=== PATIENT | male | born 1985 | race Caucasian/White ===

== ENCOUNTER 2016-08-16 19:52 | Emergency (ER) | payer OTHER ==
[~2016-08-16] VITALS: Ht 170.2 cm; Wt 106.8 kg
[~2016-08-16 19:52] MED LIST: GABA-1218 PO; LORA-741 PO; NAPR1TAB9 PO; OMEGCAP2 PO; [UNRECOGNIZED DRUG - OTHER] PO
[2016-08-16 20:00] VITALS: TEMP 37; Ht 170.2 cm; Wt 106.8 kg
--- NOTE | 2016-08-16 20:39 | EMERGENCY ROOM VISIT NOTE ---
History Report prepared by Phillip: Lea Mosley Under the Supervision of: Dr. Patricio Diaz M.D. First contact with patient: 20:19 Chief Complaint: HEADACHE Stated Complaint: SYNCOPE History of Present Illness The patient is a 30 year old male who presents to the Emergency Room with complaints of worsening headache beginning yesterday. He is experiencing the pain behind his eyes and around his quaker areas. He notes that he has chronic migraines however this headache is in a different location than normal. The patient states that he is having neck pain and experiences trouble moving his head left and right. The patient does have chronic neck pain due to spinal misalignment at C6-C7 and notes that this feels similar to that pain. He is also experiencing weakness and numbness to his hands and feet. The patient did have a syncope episode today at his house. He is also experiencing decreased appetite, light sensitivity, vomiting and a subjective fever. The patient has taken Aleve. He denies nausea. Source of History: patient Onset: yesterday Position: other (global) Quality: other (headache) Timing: worsening Associated Symptoms: + fevers, + neck pain, + vomiting Review of Systems See HPI for pertinent positives & negatives. A total of 10 systems reviewed and were otherwise negative. Past Medical & Surgical Medical Problems: (1) Bipolar Disorder, Unspecified (2) Cervical strain (3) Chronic neck pain (4) Hypertension (5) Hypothyroidism (6) Migraines (7) Rhus dermatitis (8) Right arm surgery Surgical Problems: (1) History of hernia repair (2) History of tonsillectomy Family History Diabetes mellitus FHx: cancer FHx: gallbladder disease Hypertension Kidney disease Seizures Social History Smoking Status: Never Smoker Alcohol Use: occasionally Drug Use: none Marital Status: single Housing Status: lives alone Occupation Status: unemployed Current/Historical Medications Scheduled Doxycycline Monohydrate (Monodox), 100 MG PO BID Gabapentin (Neurontin), 300 MG PO TID [place]-3 Fatty Acids (Fish Oil), 1 CAP PO BID [Deep Blue Veg Caps], 1 CAP PO BID Scheduled PRN Adgdwcx-Syeernuibjeys-Lmzrupcq (Excedrin Migraine), 1 DOSE PO DIRECTED PRN for Migraine Homeopathic Products (Frankincense Uplifting), 1 DOSE TOP DIRECTED PRN for Migraine Liniments & Rubs (Deep Blue Relief), 1 APPLN TOP DIRECTED PRN for Pain Lorazepam (Ativan), 0.5 MG PO Q6H PRN for Anxiety Naproxen (Aleve), 220 MG PO UD PRN for Pain Peppermint Oil (Bulk) (Peppermint Oil), 1 DOSE TOP DIRECTED PRN for Heartburn Allergies Coded Allergies: Chlorine (Verified Allergy, Severe, SHORTNESS OF BREATH JUST FROM SMELLING IT, 08/16/16) Penicillins (Verified Allergy, Severe, RASH-severe itchiness, 08/16/16) Valproic Acid (Verified Adverse Reaction, Unknown, LIVER ENZYME ELEVATION , 08/16/16) Physical Exam Vital Signs Date Time Temp Pulse Resp B/P Pulse Ox O2 Delivery O2 Flow Rate FiO2 08/16/16 23:00 87 20 138/86 98 08/16/16 21:56 72 16 140/78 98 Room Air 08/16/16 21:09 98 Room Air 08/16/16 21:09 98 Room Air 08/16/16 21:06 82 127/89 99 Room Air 80 141/93 84 141/88 08/16/16 20:01 84 08/16/16 20:00 37.0 87 16 148/94 98 Room Air Physical Exam GENERAL: Patient is a healthy-appearing well-nourished HEAD: Normocephalic atraumatic. No evidence of meningitis or cephalitis. EYES: Ocular movements intact pupils equal and react to light OROPHARYNX mucous membranes are moist no exudates present no erythema or edema present NECK: Supple no nuchal rigidity CHEST: Good equal expansion LUNGS: Clear and equal to auscultation CARDIAC: Normal S1 and S2 ABDOMEN: Soft nontender no guarding BACK: No CVA tenderness EXTREMITIES: No pain upon palpation normal muscle strength in all groups no clubbing cyanosis or edema NEURO: Patient is following commands is answering questions appropriately. Alert and oriented x3 Cranial Nerves 2-12 grossly intact Medical Decision & Procedures ER Provider Diagnostic Interpretation: Radiology results as stated below per my review and radiologist interpretation: CT SCAN OF THE BRAIN WITHOUT IV CONTRAST CLINICAL HISTORY: Headache. Syncope. COMPARISON STUDY: MRI of the brain dated 01/15/2011. TECHNIQUE: Unenhanced axial CT scan of the brain is performed from the vertex to the skull base. Automated dose control exposure was utilized. CT DOSE: 537.48 mGy.cm FINDINGS: Brain parenchyma: The brain parenchyma is normal in appearance. There is no hemorrhage, mass effect, or evidence of acute territorial ischemia by CT criteria. Tolbert-white matter is preserved. No extra-axial fluid collection is seen. Ventricles, sulci, cisterns: Normal in configuration. Intracranial vasculature: The visualized intracranial vasculature at the skull base is normal in appearance. Calvarium: Unremarkable. Sinuses and mastoids: The visualized paranasal sinuses are clear. The mastoid air cells are well pneumatized. Orbits: The bony orbits are grossly intact. IMPRESSION: No acute intracranial abnormality. Electronically signed by: Devang Larios M.D. 08/16/2016 9:51 PM Dictated Date/Time: 08/16/2016 9:50 PM SINGLE VIEW CHEST CLINICAL HISTORY: Syncope. FINDINGS: An AP, portable, upright chest radiograph is compared to study dated 01/17/2016. The cardiomediastinal silhouette is unremarkable. The lungs and pleural spaces are clear. No pneumothorax is seen. The bony thorax is grossly intact. IMPRESSION: No active disease in the chest. Electronically signed by: Devang Larios M.D. 08/16/2016 9:34 PM Dictated Date/Time: 08/16/2016 9:34 PM Laboratory Results 08/16/16 19:38 Red Blood Count 6.09, Mean Corpuscular Volume 79.5, Mean Corpuscular Hemoglobin 30.0, Mean Corpuscular Hemoglobin Concent 37.8, Mean Platelet Volume 11.5, Neutrophils (%) (Auto) 88.2, Lymphocytes (%) (Auto) 7.3, Monocytes (%) (Auto) 3.9, Eosinophils (%) (Auto) 0.1, Basophils (%) (Auto) 0.2, Neutrophils # (Auto) 17.32, Lymphocytes # (Auto) 1.43, Monocytes # (Auto) 0.76, Eosinophils # (Auto) 0.01, Basophils # (Auto) 0.03 08/16/16 19:38 Test 08/16/16 19:38 08/16/16 21:05 08/16/16 21:17 White Blood Count 19.60 K/uL (4.8-10.8) Red Blood Count 6.09 M/uL (4.7-6.1) Hemoglobin 18.3 g/dL (14.0-18.0) Hematocrit 48.4 % (42-52) Mean Corpuscular Volume 79.5 fL (80-100) Mean Corpuscular Hemoglobin 30.0 pg (25-34) Mean Corpuscular Hemoglobin Concent 37.8 g/dl (32-36) Platelet Count 208 K/uL (130-400) Mean Platelet Volume 11.5 fL (7.4-10.4) Neutrophils (%) (Auto) 88.2 % Lymphocytes (%) (Auto) 7.3 % Monocytes (%) (Auto) 3.9 % Eosinophils (%) (Auto) 0.1 % Basophils (%) (Auto) 0.2 % Neutrophils # (Auto) 17.32 K/uL (1.4-6.5) Lymphocytes # (Auto) 1.43 K/uL (1.2-3.4) Monocytes # (Auto) 0.76 K/uL (0.11-0.59) Eosinophils # (Auto) 0.01 K/uL (0-0.5) Basophils # (Auto) 0.03 K/uL (0-0.2) RDW Standard Deviation 35.8 fL (36.4-46.3) RDW Coefficient of Variation 12.5 % (11.5-14.5) Immature Granulocyte % (Auto) 0.3 % Immature Granulocyte # (Auto) 0.05 K/uL (0.00-0.02) Anion Gap 11.0 mmol/L (3-11) Est Creatinine Clear Calc Drug Dose 116.5 ml/min Estimated GFR () 105.3 Estimated GFR (Non- 90.9 BUN/Creatinine Ratio 8.5 (10-20) Calcium Level 9.9 mg/dl (8.5-10.1) Total Bilirubin 1.6 mg/dl (0.2-1) Direct Bilirubin 0.2 mg/dl (0-0.2) Aspartate Amino Transf (AST/SGOT) 41 U/L (15-37) Alanine Aminotransferase (ALT/SGPT) 69 U/L (12-78) Alkaline Phosphatase 87 U/L (45-117) Total Protein 8.1 gm/dl (6.4-8.2) Albumin 4.8 gm/dl (3.4-5.0) Thyroid Stimulating Hormone (TSH) 1.130 uIu/ml (0.300-4.500) Urine Color DK YELLOW Urine Appearance CLOUDY (CLEAR) Urine pH >= 9.0 (4.5-7.5) Urine Specific [place] 1.027 (1.000-1.030) Urine Protein NEG (NEG) Urine Glucose (UA) NEG (NEG) Urine Ketones NEG (NEG) Urine Occult Blood NEG (NEG) Urine Nitrite NEG (NEG) Urine Bilirubin NEG (NEG) Urine Urobilinogen NEG (NEG) Urine Leukocyte Esterase TRACE (NEG) Urine WBC (Auto) 1-5 /hpf (0-5) Urine RBC (Auto) 0-4 /hpf (0-4) Urine Hyaline Casts (Auto) 5-10 /lpf (0-5) Urine Epithelial Cells (Auto) 20-30 /lpf (0-5) Urine Bacteria (Auto) NEG (NEG) Influenza Type A (RT-PCR) Neg for Influ A (NEG) Influenza Type A Antigen Neg for Influ A (NEG) Influenza Type B Antigen Neg for Influ B (NEG) Influenza Type B (RT-PCR) Neg for Influ B (NEG) Labs reviewed by ED physician. Medications Administered Medications (Trade) Dose Ordered Sig/Esther Route Start Time Stop Time Status Last Admin Dose Admin Sodium Chloride (Nss 1000ml) 1,000 ml @ 999 mls/hr Q1H1M STAT IV 08/16/16 20:55 08/16/16 21:55 DC 08/16/16 20:55 999 MLS/HR Ketorolac Tromethamine (Toradol Inj) 30 mg NOW STAT IV 08/16/16 20:55 08/16/16 20:57 DC 08/16/16 21:06 30 MG Prochlorperazine Edisylate (Compazine Inj) 10 mg NOW STAT IV 08/16/16 20:55 08/16/16 20:57 DC 08/16/16 21:04 10 MG Diphenhydramine HCl (Benadryl Inj) 50 mg NOW STAT IV 08/16/16 20:55 08/16/16 20:57 DC 08/16/16 21:04 50 MG Doxycycline Hyclate (Vibramycin Cap) 100 mg NOW STAT PO 08/16/16 22:45 08/16/16 22:46 DC 08/16/16 22:53 100 MG ECG Indication: other (headache) Rate (beats per minute): 80 Rhythm: normal sinus Findings: no acute ischemic change, no ectopy ED Course 2051: Past medical records reviewed. The patient was evaluated in room A11. A complete history and physical examination was performed. 2054: Benadryl Inj 50 mg IV, Compazine Inj 10 mg IV, Toradol Inj 30 mg IV, Sodium Chloride 1,000 ml @ 999 mls/hr IV. 2244: Vibramycin Cap 100 mg PO. 2247: Upon reexamination the patient is hemodynamically stable. I discussed results and treatment plan with the patient. He verbalizes agreement and understanding. The patient is ready for discharge. Medical Decision The patient is a 30 year old male who presents to the ED with complaints of headache. Differential diagnosis: Etiologies such as migraine headache, meningitis, sinusitis, CO exposure, ICH, SAH, infection, tumor, headache, sinus thrombosis, arterial dissection, as well as others were entertained. This is a 30-year-old male who presents emergency department complaining of headache along with neck pain. I will note that the patient also has a large elevation in his white blood count. Based on these findings I highly recommended that the patient have a lumbar puncture performed to rule out meningitis however the patient is insistent that this is a normal migraine headache for him along with normal neck pain. He is more concerned that he has been coughing up phlegm. There is no evidence of pneumonia on chest x-ray however I will place the patient doxycycline I stressed to the patient the need to return to the emergency department for a lumbar puncture if his headache and neck pain worsens. An IV was established, the patient given normal saline bolus , Compazine, Benadryl, Toradol repeat examination revealed much improvement patient's symptoms. The patient is pain-free at the time of discharge The patient has demonstrated no significant defect in the decision-making capacity to make choices. The encounter had a good level of communication with language the patient can easily understand. I feel trust was present and conveyed that our action/intentions were the best interest of the patient. The patient was given all relevant information and reiterated the explained risks and benefits. The patient explained the reasoning for refusing treatment clearly. The patient possesses and expresses a set of values and goals, the ability to communicate and understand, and an ability to reason and deliberate. Despite acting emphatically, attentively and with the utmost patient's the patient declined further treatment. I offered options, negotiated, and explored every reasonable choice. I must respect the patient's autonomy and that they feel that their choices are best for them despite the associated risks of leaving without completing the evaluation. The patient was informed about the findings as listed above. All questions were answered and he was pleased with the treatment. Return instructions were outlined and the patient was discharged in stable condition. Impression Primary Impression: Headache Scribe Attestation The scribe's documentation has been prepared under my direction and personally reviewed by me in its entirety. I confirm that the note above accurately reflects all work, treatment, procedures, and medical decision making performed by me. Departure Information Dispostion Home / Self-Care Prescriptions Doxycycline Monohydrate (Monodox) 100 Mg Cap 100 MG PO BID for 10 Days, #20 CAP Prov: Patricio Diaz MD 08/16/16 Referrals Lupe Mark M.D. (PCP) Forms HOME CARE DOCUMENTATION FORM, IMPORTANT VISIT INFORMATION, School Instructions, Work Instructions Patient Instructions Headache Pain, My [facility] Additional Instructions Return if head and neck pain become worse You have been examined and treated today on an emergency basis only. This is not a substitute for, or an effort to provide, complete comprehensive medical care. It is impossible to recognize and treat all injuries or illnesses in a single emergency department visit. It is therefore important that you follow up closely with [facility]. Call as soon as possible for an appointment. Thank you for your time and consideration. I look forward to speaking with you again soon. Please don't hesitate to call us if you have any questions. Problem Qualifiers Primary Impression: Headache Headache type: unspecified Headache chronicity pattern: unspecified pattern Intractability: not intractable Qualified Codes: R51 - Headache
[2016-08-16] MEDS ORDERED: PEPPOIL TOP (20:41)
[2016-08-16] MEDS ORDERED: LINIGEL19 TOP (20:41)
[2016-08-16] MEDS ORDERED: ASPI-390 PO (20:41)
[2016-08-16] MEDS ORDERED: [UNRECOGNIZED DRUG - CODE] TOP (20:41)
[2016-08-16] MEDS ORDERED: DiphenhydrAMINE HCL 50 MG/ML VIAL IV STA (20:55)
[2016-08-16] MEDS ORDERED: SODIUM CHLORIDE 0.9% 1000ML 1,000 ML IV STA (20:55)
[2016-08-16] MEDS ORDERED: KETOROLAC TROMETHAMINE 30 MG/ML VIAL IV STA (20:55)
[2016-08-16] MEDS ORDERED: PROCHLORPERAZINE 5 MG/ML 2 ML VIAL IV STA (20:55)
[2016-08-16 21:01] LABS: BASO % 0.2 %; BASO ABS # 0.03 K/uL (0-0.2); COMPLETE YES; EOS % 0.1 %; HEMATOCRIT 48.4 % (42-52); IG% 0.3 %; LYMPH % 7.3 %; LYMPH ABS # 1.43 K/uL (1.2-3.4); MEAN CELL VOLUME 79.5 fL (80-100); MEAN CORPUSCULAR HGB CONC 37.8 g/dl (32-36); MEAN PLATELET VOLUME 11.5 fL (7.4-10.4); MONO % 3.9 %; NEUT % 88.2 %; PLATELET COUNT 208 K/uL (130-400); RED BLOOD COUNT 6.09 M/uL (4.7-6.1)
[2016-08-16 21:09] VITALS: O2SAT 98
[2016-08-16 21:11] LABS: BUN/CREATININE RATIO 8.5 (10-20); CREATININE 1.1 mg/dl (0.60-1.40); POTASSIUM 3.7 mmol/L (3.5-5.1)
[2016-08-16 21:21] LABS: THYROID STIMULATING HORMONE 1.13 uIu/ml (0.300-4.500)
[2016-08-16 21:25] LABS: MANUAL MICROSCOPIC REQUIRED? NO; REVIEW REQ? NO; URINE APPEARANCE CLOUDY (CLEAR); URINE BILIRUBIN NEG (NEG); URINE COLOR DK YELLOW; URINE EPITHELIAL CELL AUTO 20-30 /lpf (0-5); URINE NITRITE NEG (NEG); URINE PH >= 9.0 (4.5-7.5); URINE SPECIFIC GRAVITY 1.027 (1.000-1.030); UROBILINOGEN NEG (NEG)
[2016-08-16 21:26] LABS: SULFASALICYLIC ACID NEG (NEG)
--- NOTE | 2016-08-16 21:36 | DIAGNOSTIC IMAGING REPORT ---
SINGLE VIEW CHEST CLINICAL HISTORY: Syncope. FINDINGS: An AP, portable, upright chest radiograph is compared to study dated 01/17/2016. The cardiomediastinal silhouette is unremarkable. The lungs and pleural spaces are clear. No pneumothorax is seen. The bony thorax is grossly intact. IMPRESSION: No active disease in the chest. Electronically signed by: Devang Larios M.D. 08/16/2016 9:34 PM Dictated Date/Time: 08/16/2016 9:34 PM
--- NOTE | 2016-08-16 21:53 | DIAGNOSTIC IMAGING REPORT ---
CT SCAN OF THE BRAIN WITHOUT IV CONTRAST CLINICAL HISTORY: Headache. Syncope. COMPARISON STUDY: MRI of the brain dated 01/15/2011. TECHNIQUE: Unenhanced axial CT scan of the brain is performed from the vertex to the skull base. Automated dose control exposure was utilized. CT DOSE: 537.48 mGy.cm FINDINGS: Brain parenchyma: The brain parenchyma is normal in appearance. There is no hemorrhage, mass effect, or evidence of acute territorial ischemia by CT criteria. Tolbert-white matter is preserved. No extra-axial fluid collection is seen. Ventricles, sulci, cisterns: Normal in configuration. Intracranial vasculature: The visualized intracranial vasculature at the skull base is normal in appearance. Calvarium: Unremarkable. Sinuses and mastoids: The visualized paranasal sinuses are clear. The mastoid air cells are well pneumatized. Orbits: The bony orbits are grossly intact. IMPRESSION: No acute intracranial abnormality. Electronically signed by: Devang Larios M.D. 08/16/2016 9:51 PM Dictated Date/Time: 08/16/2016 9:50 PM
[2016-08-16 22:02] LABS: CALCIUM 9.9 mg/dl (8.5-10.1)
[2016-08-16] MEDS ORDERED: DOXYCYCLINE HYCLATE 100 MG CAP PO STA (22:45)
[2016-08-16] MEDS ORDERED: DOXY100C76 PO (22:46)
[2016-08-16 23:00] VITALS: BP 138/86; PULSE 87; O2SAT 98
[2016-08-16 23:13] LABS: INFLUENZA A PCR Neg for Influ A (NEG); INFLUENZA B PCR Neg for Influ B (NEG)
== END 2016-08-16 23:01 | disposition home or self-care (01) ==
LOC: EDBD 19:52 → C.EDA 19:53
DX: R51 Headache (principal); M54.2 Cervicalgia; G89.29 Other chronic pain; R55 Syncope and collapse; F31.9 Bipolar disorder, unspecified; I10 Essential (primary) hypertension; E03.9 Hypothyroidism, unspecified; Z83.3 Family history of diabetes mellitus; Z80.9 Family history of malignant neoplasm, unspecified; Z82.49 Family history of ischemic heart disease and other diseases of the circulatory system; Z82.0 Family history of epilepsy and other diseases of the nervous system; Z79.899 Other long term (current) drug therapy

== ENCOUNTER 2016-08-22 17:19 | Emergency (ER) | payer OTHER ==
[~2016-08-22] VITALS: Ht 165.1 cm; Wt 105.6 kg
[~2016-08-22 17:19] MED LIST changes: +ASPI-390 PO; +DOXY100C76 PO; +LINIGEL19 TOP; +PEPPOIL TOP; +[UNRECOGNIZED DRUG - CODE] TOP
[2016-08-22 17:23] VITALS: TEMP 36.9; Ht 165.1 cm; Wt 105.6 kg
--- NOTE | 2016-08-22 18:10 | EMERGENCY ROOM VISIT NOTE ---
History Report prepared by Phillip: Chin Live Under the Supervision of: Dr. Omi Jerome D.O. First contact with patient: 17:57 Chief Complaint: REFERRED BY DOCTOR Stated Complaint: DR SANTIAGO REFERRED TO BE TESTED FOR MENINGITIS History of Present Illness The patient is a 30 year old male who presents to the Emergency Room after being referred by his PCP to role out meningitis. The patient was in the ED six days ago with a severe headache, fevers, chills, neck stiffness and back pain. The patient declined a lumbar puncture at that time. He was prescribed Doxycycline. At that time his white count was elevated. His symptoms have resolved other than neck and back pain. He does not currently complain of fevers or chills. He denies generalized body aches. The patient was referred to the ED by his PCP to role out meningitis because they are worried about his white count still being elevated. The patient has a history of migraines and C6- C7 damage. The patient denies drug use. He occasionally drinks alcohol. Source of History: patient Onset: six days ago Position: head Quality: other (meningitis r/o) Timing: resolved Associated Symptoms: + back pain, + neck pain, No chills (resolved), No fevers (resolved) Review of Systems See HPI for pertinent positives & negatives. A total of 10 systems reviewed and were otherwise negative. Past Medical & Surgical Medical Problems: (1) Bipolar Disorder, Unspecified (2) Cervical strain (3) Chronic neck pain (4) Hypertension (5) Hypothyroidism (6) Migraines (7) Rhus dermatitis (8) Right arm surgery Surgical Problems: (1) History of hernia repair (2) History of tonsillectomy Family History Diabetes mellitus FHx: cancer FHx: gallbladder disease Hypertension Kidney disease Seizures Social History Smoking Status: Never Smoker Alcohol Use: occasionally Drug Use: none Marital Status: single Housing Status: lives alone Occupation Status: unemployed Current/Historical Medications Scheduled Doxycycline Monohydrate (Monodox), 100 MG PO BID Gabapentin (Neurontin), 300 MG PO TID [place]-3 Fatty Acids (Fish Oil), 1 CAP PO BID [Deep Blue Veg Caps], 1 CAP PO BID Scheduled PRN Mmhggac-Bsymnckdbteiw-Aectdiru (Excedrin Migraine), 1 DOSE PO DIRECTED PRN for Migraine Homeopathic Products (Frankincense Uplifting), 1 DOSE TOP DIRECTED PRN for Migraine Liniments & Rubs (Deep Blue Relief), 1 APPLN TOP DIRECTED PRN for Pain Lorazepam (Ativan), 0.5 MG PO Q6H PRN for Anxiety Naproxen (Aleve), 220 MG PO UD PRN for Pain Peppermint Oil (Bulk) (Peppermint Oil), 1 DOSE TOP DIRECTED PRN for Heartburn Allergies Coded Allergies: Chlorine (Verified Allergy, Severe, SHORTNESS OF BREATH JUST FROM SMELLING IT, 08/23/16) Penicillins (Verified Allergy, Severe, RASH-severe itchiness, 08/23/16) Valproic Acid (Verified Adverse Reaction, Unknown, LIVER ENZYME ELEVATION , 08/23/16) Physical Exam Vital Signs Date Time Temp Pulse Resp B/P Pulse Ox O2 Delivery O2 Flow Rate FiO2 08/22/16 20:07 84 18 159/132 97 08/22/16 19:25 81 20 143/98 99 Room Air 08/22/16 19:00 81 20 128/102 98 Room Air 08/22/16 18:20 94 20 159/92 99 Room Air 08/22/16 18:12 93 08/22/16 17:23 36.9 96 18 155/105 100 Room Air Physical Exam GENERAL: Patient is awake, alert, and in no acute distress. Patient is resting comfortably and showing no signs of anxiety EYES: The conjunctivae are clear. The pupils are round and reactive. EARS, NOSE, MOUTH AND THROAT: The nose is without any evidence of any deformity. Mucous membranes are moist tongue is midline NECK: The neck is nontender and supple. RESPIRATORY: Normal respiratory effort is noted there is no evidence of wheezing rhonchi or rales CARDIOVASCULAR: Regular rate and rhythm noted there no murmurs rubs or gallops normal S1 normal S2 GASTROINTESTINAL: The abdomen is soft. Bowel sounds are present in all quadrants. Abdomen is nontender MUSCULOSKELETAL/EXTREMITIES: There is no evidence of gross deformity full range of motion is noted in the hips and shoulders SKIN: There is no obvious evidence of any rash. There are no petechiae, pallor or cyanosis noted. NEUROLOGIC: Patient is awake alert and oriented x3 strength is symmetric patellar reflexes are 2+ bilaterally Medical Decision & Procedures Laboratory Results Test 08/22/16 18:17 CSF Color PINK CSF Appearance HAZY CSF WBC 7 /uL (0-5) CSF RBC 1650 /uL (0) CSF Xanthrochromic NO XANTHOCHROMIA CSF Cell Count Tube # 1 CSF Chemistry Tube # 2 CSF Glucose 71 mg/dl (40-70) CSF Total Protein 40.8 mg/dl (15.0-45.0) Laboratory results per my review. Procedure Lumbar Puncture Indication: Headache. Verbal consent was obtained after the risks and benefits were explained, including but not limited to headache, bleeding/clotting, scarring, infection, pain, and bone/joint/nerve damage. At this time, the risks of the procedure are less than the risks of NOT performing the procedure. A time out was taken and the correct patient and site identified. The patient was placed in the seated position and the back was prepped with betadine and draped in the standard fashion. The L3 intervertebral space was identified, anesthetized locally with 1 % lidocaine without epinephrine, and the spinal needle was inserted through the skin with the bevel parallel to the dural fibers. The needle was carefully advanced into the lumbar cistern and 4 tubes of clear CSF was obtained. The stylet was replaced and the needle was removed. A bandaid was placed and the patient was placed in the supine position. The patient tolerated the procedure well and there were no complications. ED Course 1800: The patient was evaluated in room B2. A complete history and physical examination were performed. 1809: Lumbar puncture performed. Please see procedural note above. 1999: Reassessed the patient. Discussed the discharge instructions with him. He verbalized understanding and agreement of the treatment plan. The patient is ready for discharge. Medical Decision Prior records/ancillary studies reviewed. Triage Nursing notes reviewed. The patient's history was concerning for headache. Differential diagnosis: Etiologies such as migraine headache, meningitis, sinusitis, CO exposure, ICH, SAH, infection, tumor, headache, sinus thrombosis, arterial dissection, as well as others were entertained. The patient is a 30-year-old male who presented to the emergency department at the request of his primary care physician for a lumbar puncture. The patient was seen in our facility recently for headache. He was found have a high white blood cell count but his workup otherwise was negative. He did not wish to have a lumbar puncture at the time. His family doctor sent him back to the emergency department for lumbar puncture. Lumbar puncture was obtained in the emergency department. There is no definite signs of meningitis or subarachnoid hemorrhage although the initial tube revealed atraumatic. I discussed the patient's laboratory studies with him. He was encouraged to rest and avoid any strenuous activity.. He was also encouraged to return to the emergency Department immediately if symptoms change worsen or if the need arises. Also he was instructed to return if he developed a spinal headache. Impression Primary Impression: Headache Scribe Attestation The scribe's documentation has been prepared under my direction and personally reviewed by me in its entirety. I confirm that the note above accurately reflects all work, treatment, procedures, and medical decision making performed by me. Departure Information Dispostion Home / Self-Care Referrals Lupe Santiago M.D. (PCP) Forms HOME CARE DOCUMENTATION FORM, IMPORTANT VISIT INFORMATION, WORK / SCHOOL INSTRUCTIONS, Work Instructions Patient Instructions Headache Pain, Lumbar Puncture, My [facility] Additional Instructions Continue all medications as prescribed. Rest and avoid any strenuous activity. Follow-up with your family doctor as soon as possible for further evaluation.
[2016-08-22 18:41] LABS: CSF CHEMISTRY TUBE # 2
[2016-08-22 18:46] LABS: CSF TOTAL PROTEIN 40.8 mg/dl (15.0-45.0)
[2016-08-22 18:58] LABS: CSF APPEARANCE CLEAR; CSF COLOR COLORLESS; CSF XANTHOCHROMIC NO XANTHOCHROMIA
[2016-08-22 19:44] LABS: CSF COLOR PINK
[2016-08-22 19:45] LABS: CSF APPEARANCE HAZY; CSF XANTHOCHROMIC NO XANTHOCHROMIA
[2016-08-22 20:07] VITALS: BP 159/132; PULSE 84; O2SAT 97
[2016-08-23] MEDS ORDERED: CYCL10TA6 PO (14:49)
[2016-08-23] MEDS ORDERED: HYDR-5688 PO (14:49)
== END 2016-08-22 20:07 | disposition home or self-care (01) ==
LOC: C.EDB 17:21
DX: R51 Headache (principal); F31.9 Bipolar disorder, unspecified; M54.2 Cervicalgia; G89.29 Other chronic pain; I10 Essential (primary) hypertension; E03.9 Hypothyroidism, unspecified; Z83.3 Family history of diabetes mellitus; Z80.9 Family history of malignant neoplasm, unspecified; Z83.79 Family history of other diseases of the digestive system; Z82.49 Family history of ischemic heart disease and other diseases of the circulatory system; Z84.1 Family history of disorders of kidney and ureter; Z79.899 Other long term (current) drug therapy

== ENCOUNTER 2016-08-23 11:23 | Emergency (ER) | payer OTHER ==
[~2016-08-23] VITALS: Ht 167.6 cm; Wt 105.4 kg
[2016-08-23 11:29] VITALS: TEMP 36.4; Ht 167.6 cm; Wt 105.4 kg
[2016-08-23] MEDS ORDERED: CYCLOBENZAPRINE HCL 10 MG TAB PO STA (11:53)
[2016-08-23] MEDS ORDERED: KETOROLAC TROMETHAMINE 60 MG/2 ML VIAL IM STA (11:53)
[2016-08-23] MEDS ORDERED: HYDROCODONE/ACETAMOPHEN 5/325MG TAB PO STA (11:53)
--- NOTE | 2016-08-23 13:34 | EMERGENCY ROOM VISIT NOTE ---
ED Visit Note First contact with patient: 11:47 I have seen and examined this patient with Gosia Ibarra and generally agree with the treatment plan as discussed. Problem List Medical Problems: (1) Bipolar Disorder, Unspecified Status: Chronic (2) Cervical strain Status: Resolved (3) Chronic neck pain Status: Chronic (4) Hypertension Status: Chronic (5) Hypothyroidism Status: Chronic (6) Migraines Status: Chronic (7) Rhus dermatitis Status: Chronic (8) Right arm surgery Status: Resolved Surgical Problems: (1) History of hernia repair Status: Resolved (2) History of tonsillectomy Status: Resolved Current/Historical Medications Scheduled Doxycycline Monohydrate (Monodox), 100 MG PO BID Gabapentin (Neurontin), 300 MG PO TID [place]-3 Fatty Acids (Fish Oil), 1 CAP PO BID [Deep Blue Veg Caps], 1 CAP PO BID Scheduled PRN Rfkvdam-Hzjsqubnhfflf-Cyppvhgy (Excedrin Migraine), 1 DOSE PO DIRECTED PRN for Migraine Homeopathic Products (Frankincense Uplifting), 1 DOSE TOP DIRECTED PRN for Migraine Liniments & Rubs (Deep Blue Relief), 1 APPLN TOP DIRECTED PRN for Pain Lorazepam (Ativan), 0.5 MG PO Q6H PRN for Anxiety Naproxen (Aleve), 220 MG PO UD PRN for Pain Peppermint Oil (Bulk) (Peppermint Oil), 1 DOSE TOP DIRECTED PRN for Heartburn Allergies Coded Allergies: Chlorine (Verified Allergy, Severe, SHORTNESS OF BREATH JUST FROM SMELLING IT, 08/23/16) Penicillins (Verified Allergy, Severe, RASH-severe itchiness, 08/23/16) Valproic Acid (Verified Adverse Reaction, Unknown, LIVER ENZYME ELEVATION , 08/23/16) Vital Signs Date Time Temp Pulse Resp B/P Pulse Ox O2 Delivery O2 Flow Rate FiO2 08/23/16 11:29 36.4 76 20 147/100 98 Room Air Laboratory Results Test 08/23/16 12:20 Medications Administered Medications (Trade) Dose Ordered Sig/Esther Route Start Time Stop Time Status Last Admin Dose Admin Ketorolac Tromethamine (Toradol Inj) 60 mg NOW STAT IM 08/23/16 11:53 08/23/16 11:55 DC 08/23/16 12:16 60 MG Cyclobenzaprine HCl (Flexeril Tab) 10 mg NOW STAT PO 08/23/16 11:53 08/23/16 11:55 DC 08/23/16 12:16 10 MG Acetaminophen/ Hydrocodone Bitart ([place] 5/325 Tab) 2 tab NOW STAT PO 08/23/16 11:53 08/23/16 11:55 DC 08/23/16 12:16 2 TAB Departure Information Referrals Lupe Mark M.D. (PCP) Patient Instructions [facility]
--- NOTE | 2016-08-23 14:47 | EMERGENCY ROOM VISIT NOTE ---
ED Visit Note First contact with patient: 11:47 CHIEF COMPLAINT: Low back pain HISTORY OF PRESENT ILLNESS: This 30-year-old male returns to the ER today for persistent low back pain. The patient was initially seen here one week ago for back and head pain. He had an elevated white count. The doctor wanted do a spinal tap at that time to rule out meningitis but he refused. The patient was then seen by his family physician and sent in yesterday for a spinal tap. The spinal tap was negative. The patient is now complaining of persistent back pain. He states he was not given anything for pain as an outpatient. The patient has been taking Aleve without any relief. The patient also states that his mother would like him tested for Lyme's disease. They found multiple ticks on there. He has not found any ticks on himself that he noticed. The patient denies any urinary symptoms or any loss of bowel or bladder control. The patient denies any radicular pain. REVIEW OF SYSTEMS:6 system review was performed and was negative unless stated otherwise in history of present illness. PMH: The patient is healthy; hypothyroidism, asthma, hypertension SOCIAL HISTORY: Patient lives with his mother. The patient denies any tobacco use but admits to occasional alcohol use. PHYSICAL EXAM: Vital Signs normal: Reviewed Nurse's notes and agree. GEN.: 30- year-old white male appears in no acute distress. MENTAL STATUS: Alert and oriented 3. LUMBAR SPINE: No gross bony abnormality noted. No erythema or edema noted at the area of lumbar puncture from yesterday. Patient is nontender to palpation over the spinous processes. He is tender to palpation over the paravertebral regions bilaterally. The patient has limited range of motion in all directions secondary to pain. Muscle strength is 5 out of 5 bilateral lower extremities and symmetrical. NEURO: Patient is able to heel and toe walk without difficulty. I lateral patellar and Achilles reflexes are 2+. Sensation is intact to pinprick bilateral lower extremities. Negative straight leg raise bilaterally. EMERGENCY DEPARTMENT COURSE: The patient was evaluated. Lyme titer was negative. The patient was given Toradol 60 mg IM, Flexeril 10 mg by mouth and [place] 5/325 mg 2 tablets by mouth for pain. The patient was reevaluated was feeling much better. The patient was informed of the negative Lyme titer. The patient was discharged home in stable condition. DIAGNOSIS: Lumbar strain DISCHARGE INSTRUCTIONS AND TREATMENT: Ibuprofen 600 mg every 6 hours with food for pain. Rx is given for [place] 5/325 mg. 1-2 tablets every 6 hours as needed for more severe pain. Dispense [address] while taking the [place]. Patient was also given Rx for Flexeril 10 mg. One tablet p.o. every 8 hours for muscle spasms. Dispense [address] taking the Flexeril. Avoid staying in any one position for an extended period of time. If symptoms persist or worsen, follow up with your family doctor for referral for additional testing. Problem List Medical Problems: (1) Bipolar Disorder, Unspecified Status: Chronic (2) Cervical strain Status: Resolved (3) Chronic neck pain Status: Chronic (4) Hypertension Status: Chronic (5) Hypothyroidism Status: Chronic (6) Migraines Status: Chronic (7) Rhus dermatitis Status: Chronic (8) Right arm surgery Status: Resolved Surgical Problems: (1) History of hernia repair Status: Resolved (2) History of tonsillectomy Status: Resolved Current/Historical Medications Scheduled Doxycycline Monohydrate (Monodox), 100 MG PO BID Gabapentin (Neurontin), 300 MG PO TID [place]-3 Fatty Acids (Fish Oil), 1 CAP PO BID [Deep Blue Veg Caps], 1 CAP PO BID Scheduled PRN [id number]-Grnbawpf (Excedrin Migraine), 1 DOSE PO DIRECTED PRN for Migraine Homeopathic Products (Frankincense Uplifting), 1 DOSE TOP DIRECTED PRN for Migraine Liniments & Rubs (Deep Blue Relief), 1 APPLN TOP DIRECTED PRN for Pain Lorazepam (Ativan), 0.5 MG PO Q6H PRN for Anxiety Naproxen (Aleve), 220 MG PO UD PRN for Pain Peppermint Oil (Bulk) (Peppermint Oil), 1 DOSE TOP DIRECTED PRN for Heartburn Allergies Coded Allergies: Chlorine (Verified Allergy, Severe, SHORTNESS OF BREATH JUST FROM SMELLING IT, 08/23/16) Penicillins (Verified Allergy, Severe, RASH-severe itchiness, 08/23/16) Valproic Acid (Verified Adverse Reaction, Unknown, LIVER ENZYME ELEVATION , 08/23/16) Vital Signs Date Time Temp Pulse Resp B/P Pulse Ox O2 Delivery O2 Flow Rate FiO2 08/23/16 13:28 73 20 144/110 98 Room Air 08/23/16 11:29 36.4 76 20 147/100 98 Room Air Laboratory Results Test 08/23/16 12:20 Lyme Disease IgG Antibody NEG (NEG) Medications Administered Medications (Trade) Dose Ordered Sig/Esther Route Start Time Stop Time Status Last Admin Dose Admin Ketorolac Tromethamine (Toradol Inj) 60 mg NOW STAT IM 08/23/16 11:53 08/23/16 11:55 DC 08/23/16 12:16 60 MG Cyclobenzaprine HCl (Flexeril Tab) 10 mg NOW STAT PO 08/23/16 11:53 08/23/16 11:55 DC 08/23/16 12:16 10 MG Acetaminophen/ Hydrocodone Bitart ([place] 5/325 Tab) 2 tab NOW STAT PO 08/23/16 11:53 08/23/16 11:55 DC 08/23/16 12:16 2 TAB Departure Information Referrals Lupe Mark M.D. (PCP) Patient Instructions [facility]
[2016-08-23] MEDS ORDERED: HYDR-5688 PO (14:49)
[2016-08-23] MEDS ORDERED: CYCL10TA6 PO (14:49)
[2016-08-23 14:58] VITALS: BP 150/99; PULSE 68; O2SAT 98
== END 2016-08-23 14:59 | disposition home or self-care (01) ==
LOC: C.EDB 11:24
DX: S39.012A Strain of muscle, fascia and tendon of lower back, initial encounter (principal); X58.XXXA Exposure to other specified factors, initial encounter; E03.9 Hypothyroidism, unspecified; J45.909 Unspecified asthma, uncomplicated; I10 Essential (primary) hypertension; F31.9 Bipolar disorder, unspecified; M54.2 Cervicalgia; G89.29 Other chronic pain; L23.7 Allergic contact dermatitis due to plants, except food; G43.909 Migraine, unspecified, not intractable, without status migrainosus

== ENCOUNTER 2017-05-31 13:37 | Emergency (ER) | payer OTHER ==
[~2017-05-31] VITALS: Ht 177.8 cm; Wt 107.0 kg
[~2017-05-31 13:37] MED LIST changes: -DOXY100C76 PO
[2017-05-31 13:41] VITALS: Ht 177.8 cm; Wt 107.0 kg
[2017-05-31] MEDS ORDERED: KETOROLAC TROMETHAMINE 30 MG/ML VIAL IV STA (14:28)
[2017-05-31] MEDS ORDERED: ONDANSETRON INJ 2 MG/ML 2 ML VIAL IV STA (14:28)
[2017-05-31] MEDS ORDERED: SODIUM CHLORIDE 0.9% 1000ML 1,000 ML IV ONE (14:30)
[2017-05-31 14:36] LABS: INFLUENZA B ANTIGEN Neg for Influ B (NEG)
[2017-05-31 15:02] LABS: BASO % 0.2 %; BASO ABS # 0.01 K/uL (0-0.2); HEMATOCRIT 47.4 % (42-52); HEMOGLOBIN 17.4 g/dL (14.0-18.0); IG# 0.01 K/uL (0.00-0.02); LYMPH % 21.2 %; LYMPH ABS # 0.93 K/uL (1.2-3.4); MEAN CELL VOLUME 82.6 fL (80-100); MEAN CORPUSCULAR HEMOGLOBIN 30.3 pg (25-34); MEAN CORPUSCULAR HGB CONC 36.7 g/dl (32-36); MEAN PLATELET VOLUME 11.2 fL (7.4-10.4); MONO % 16.9 %; MONO ABS # 0.74 K/uL (0.11-0.59); NEUT % 61.5 %; NEUT ABS # 2.69 K/uL (1.4-6.5); PLATELET COUNT 162 K/uL (130-400); RED CELL DISTRIBUTION WIDTH CV 13.2 % (11.5-14.5); RED CELL DISTRIBUTION WIDTH SD 39.6 fL (36.4-46.3); WHITE BLOOD COUNT 4.38 K/uL (4.8-10.8)
[2017-05-31] MEDS ORDERED: CYCL10TA6 PO (15:06)
[2017-05-31] MEDS ORDERED: [UNRECOGNIZED DRUG - OTHER] PO (15:06)
--- NOTE | 2017-05-31 15:09 | EMERGENCY ROOM VISIT NOTE ---
History First contact with patient: 14:00 Chief Complaint: FLU LIKE SX Stated Complaint: ILLNESS History of Present Illness The patient is a 31 year old male who presents to the Emergency Room with complaints of flulike symptoms for the last 3 days. It started with a cough, headache, body aches and fever. Yesterday, he developed nausea and some diarrhea. He has not taken anything for his symptoms. He did not get a flu vaccine this year. He denies any shortness of breath. Review of Systems 10 system review performed and negative unless noted in HPI or below Past Medical/Surgical History Medical Problems: (1) Bipolar Disorder, Unspecified (2) Cervical strain (3) Chronic neck pain (4) Hypertension (5) Hypothyroidism (6) Migraines (7) Rhus dermatitis (8) Right arm surgery Surgical Problems: (1) History of hernia repair (2) History of tonsillectomy Family History Diabetes mellitus FHx: cancer FHx: gallbladder disease Hypertension Kidney disease Seizures Social History Smoking Status: Never Smoker Alcohol Use: occasionally Drug Use: none Marital Status: single Housing Status: lives alone Occupation Status: unemployed Current/Historical Medications Scheduled [[place] Caps], 1 CAP PO DAILY Scheduled PRN Cyclobenzaprine Hcl (Flexeril), 10 MG PO TID PRN for Pain Homeopathic Products (Frankincense Uplifting), 1 DOSE TOP DIRECTED PRN for Migraine Liniments & Rubs (Deep Blue Relief), 1 APPLN TOP DIRECTED PRN for Pain Peppermint Oil (Bulk) (Peppermint Oil), 1 DOSE TOP DIRECTED PRN for Heartburn Physical Exam Vital Signs Date Time Temp Pulse Resp B/P (MAP) Pulse Ox O2 Delivery O2 Flow Rate FiO2 05/31/17 17:10 36.9 98 18 139/90 98 05/31/17 15:17 106 18 153/106 95 Room Air 05/31/17 15:01 111 18 148/111 97 Room Air 05/31/17 13:41 37.3 106 20 148/104 93 Room Air Physical Exam VITALS: Vitals are noted on the nurse's note and reviewed by myself. Vital signs stable. GENERAL: 31-year-old male, mildly acutely ill in appearance SKIN: The skin was without rashes, erythema, edema, or bruising. HEAD: Normocephalic atraumatic. EYES:. Conjunctivae without injection, sclerae without icterus. Extraocular movements intact. MOUTH: Mucous membranes moist. Tonsils are not enlarged. Pharynx without erythema or exudate. Uvula midline. Airway patent. Tongue does not deviate. NECK: Supple without nuchal rigidity. No lymphadenopathy. Cervical spine is nontender. No JVD. HEART: Slightly tachycardic, regular rhythm without murmurs gallops or rubs. LUNGS: Clear to auscultation bilaterally without wheezes, rales or rhonchi. No accessory muscle use. ABDOMEN: Positive bowel sounds x 4.Soft, nontender, without organomegaly. No guarding or rebound tenderness. MUSCULOSKELETAL: No muscle atrophy, erythema, or edema noted. Strength 5/5 throughout. NEURO: Patient was alert and oriented to person place and time. Normal sensation to touch. No focal neurological deficits. Medical Decision & Procedures ER Provider Diagnostic Interpretation: CXR IMPRESSION: No acute process. Electronically signed by: Kevin Quiroga M.D. 05/31/2017 3:43 PM Dictated Date/Time: 05/31/2017 3:42 PM The status of this report is Signed. Draft = Not yet reviewed or approved by Radiologist. Signed = Reviewed and approved by Radiologist. <AttendingPhy></AttendingPhy> <FamilyPhy>No Doctor, Assigned</FamilyPhy> < PrimaryPhy>No Doctor, Assigned</PrimaryPhy> <UnitNumber>[id number]</UnitNumber> <VisitNumber>[id number]</VisitNumber> <PatientName>JOSEPH QUINTERO</PatientName > <DateOfBirth>1985</DateOfBirth> <Location>[facility]</Location> <ServiceDate> 05/31/17</ServiceDate> <MNE>ESINDI</MNE> <OrderingPhy>Sima Adams PA-C</ OrderingPhy> <OrderingPhyMNE>f rep ord Laboratory Results 05/31/17 14:50 Red Blood Count 5.74, Mean Corpuscular Volume 82.6, Mean Corpuscular Hemoglobin 30.3, Mean Corpuscular Hemoglobin Concent 36.7, Mean Platelet Volume 11.2, Neutrophils (%) (Auto) 61.5, Lymphocytes (%) (Auto) 21.2, Monocytes (%) (Auto) 16.9, Eosinophils (%) (Auto) 0.0, Basophils (%) (Auto) 0.2, Neutrophils # (Auto ) 2.69, Lymphocytes # (Auto) 0.93, Monocytes # (Auto) 0.74, Eosinophils # (Auto ) 0.00, Basophils # (Auto) 0.01 05/31/17 14:50 Test 05/31/17 13:38 05/31/17 14:50 Influenza Type A Antigen POS for Influ A (NEG) Influenza Type B Antigen Neg for Influ B (NEG) White Blood Count 4.38 K/uL (4.8-10.8) Red Blood Count 5.74 M/uL (4.7-6.1) Hemoglobin 17.4 g/dL (14.0-18.0) Hematocrit 47.4 % (42-52) Mean Corpuscular Volume 82.6 fL (80-100) Mean Corpuscular Hemoglobin 30.3 pg (25-34) Mean Corpuscular Hemoglobin Concent 36.7 g/dl (32-36) Platelet Count 162 K/uL (130-400) Mean Platelet Volume 11.2 fL (7.4-10.4) Neutrophils (%) (Auto) 61.5 % Lymphocytes (%) (Auto) 21.2 % Monocytes (%) (Auto) 16.9 % Eosinophils (%) (Auto) 0.0 % Basophils (%) (Auto) 0.2 % Neutrophils # (Auto) 2.69 K/uL (1.4-6.5) Lymphocytes # (Auto) 0.93 K/uL (1.2-3.4) Monocytes # (Auto) 0.74 K/uL (0.11-0.59) Eosinophils # (Auto) 0.00 K/uL (0-0.5) Basophils # (Auto) 0.01 K/uL (0-0.2) RDW Standard Deviation 39.6 fL (36.4-46.3) RDW Coefficient of Variation 13.2 % (11.5-14.5) Immature Granulocyte % (Auto) 0.2 % Immature Granulocyte # (Auto) 0.01 K/uL (0.00-0.02) Anion Gap 5.0 mmol/L (3-11) Est Creatinine Clear Calc Drug Dose 112.2 ml/min Estimated GFR () 95.1 Estimated GFR (Non- 82.1 BUN/Creatinine Ratio 7.7 (10-20) Calcium Level 9.1 mg/dl (8.5-10.1) Total Bilirubin 0.8 mg/dl (0.2-1) Aspartate Amino Transf (AST/SGOT) 69 U/L (15-37) Alanine Aminotransferase (ALT/SGPT) 73 U/L (12-78) Alkaline Phosphatase 70 U/L (45-117) Total Protein 8.4 gm/dl (6.4-8.2) Albumin 4.1 gm/dl (3.4-5.0) Globulin 4.3 gm/dl (2.5-4.0) Albumin/Globulin Ratio 1.0 (0.9-2) Medications Administered Medications (Trade) Dose Ordered Sig/Esther Route Start Time Stop Time Status Last Admin Dose Admin Sodium Chloride 1,000 ml @ 999 mls/hr Q1H1M ONCE IV 05/31/17 14:30 05/31/17 15:30 DC 05/31/17 14:30 999 MLS/HR Ketorolac Tromethamine (Toradol Inj) 30 mg NOW STAT IV 05/31/17 14:28 05/31/17 14:30 DC 05/31/17 14:28 30 MG Ondansetron HCl (Zofran Inj) 4 mg NOW STAT IV 05/31/17 14:28 05/31/17 14:30 DC 05/31/17 14:28 4 MG ED Course Patient was seen and examined Vital signs including blood pressure were reviewed medications list was verified with patient Labs were obtained, and a saline lock was established The patient was medicated with Toradol and Zofran. He was hydrated with 1 L of normal saline. Imaging was performed and reviewed The patient was reassessed. He was more comfortable. He denied any nausea. We reviewed his workup. He voiced understanding. He was comfortable being discharged home. I reviewed discharge instructions the patient. They voiced understanding and had no further questions. Medical Decision Differential diagnosis: Bronchitis, pneumonia, strep pharyngitis, viral pharyngitis, influenza This patient is a 31-year-old male presents to the emergency department with complaints of flulike symptoms. He was mildly acutely ill in appearance. His vital signs were stable. He tested positive for influenza A. The patient is not hypoxic. He had good symptomatic relief in the emergency department. Unfortunately, he is not a candidate for Tamiflu as his symptoms have been ongoing for several days. The patient will stay well hydrated and take Tylenol or ibuprofen for fever and pain. He was advised to follow-up with his primary care physician closely next week. He agrees to return to the emergency department with any new, worsening or concerning symptoms This chart was completed in part utilizing [employer] Speech Voice Recognition software. Attempts were made to minimize the grammatical errors, random word insertions, pronoun errors and incomplete sentences. Any formal questions or concerns about the content, text or information contained within the body of this dictation should be directly addressed to the provider for clarification. Medication Reconcilliation Current Medication List: was personally reviewed by me Blood Pressure Screening Patient's blood pressure: Elevated blood pressure Blood pressure disposition: Did not require urgent referral Impression Primary Impression: Influenza A Departure Information Dispostion Home / Self-Care Condition GOOD Referrals Lupe Mark M.D. (PCP) Patient Instructions ED Influenza Ch, [facility] Additional Instructions You have been evaluated in the emergency department for fever, body aches and nausea. This is due to influenza A. This is a fairly contagious disease. Please try to avoid public places. Wash hands frequently It is important to stay well-hydrated. Please drink extra water and sports drinks over the next several days. Ibuprofen 800 mg and/or Tylenol 1000 mg every 8 hours. You may also alternate these medications for more effective pain relief: Ibuprofen --4 HRS--> Tylenol --4 HRS--> ibuprofen --4 HRS--> Tylenol .... Please follow-up with her primary care physician early next week. Do not hesitate to return to the emergency department with a new, worsening or concerning symptoms.
[2017-05-31 15:20] LABS: ALBUMIN 4.1 gm/dl (3.4-5.0); CALCIUM 9.1 mg/dl (8.5-10.1); CREATININE 1.19 mg/dl (0.60-1.40); POTASSIUM 3.7 mmol/L (3.5-5.1)
[2017-05-31 15:22] LABS: TOTAL PROTEIN 8.4 gm/dl (6.4-8.2)
--- NOTE | 2017-05-31 15:44 | DIAGNOSTIC IMAGING REPORT ---
CHEST 2 VIEWS ROUTINE HISTORY: cough fever COMPARISON: Chest 08/16/2016. FINDINGS: The lungs are clear. Cardiac silhouette is normal in size. No pleural effusions. No pneumothorax. IMPRESSION: No acute process. Electronically signed by: Kevin Quiroga M.D. 05/31/2017 3:43 PM Dictated Date/Time: 05/31/2017 3:42 PM
[2017-05-31 17:10] VITALS: BP 139/90; PULSE 98; TEMP 36.9; O2SAT 98
== END 2017-05-31 17:10 | disposition home or self-care (01) ==
LOC: EDBD 13:37 → C.EDB 13:37
DX: J11.1 Influenza due to unidentified influenza virus with other respiratory manifestations (principal); F31.9 Bipolar disorder, unspecified; M54.2 Cervicalgia; G89.29 Other chronic pain; I10 Essential (primary) hypertension; E03.9 Hypothyroidism, unspecified; G43.909 Migraine, unspecified, not intractable, without status migrainosus; Z83.3 Family history of diabetes mellitus; Z82.49 Family history of ischemic heart disease and other diseases of the circulatory system; Z82.0 Family history of epilepsy and other diseases of the nervous system